=== PATIENT | female | born 1980 | race Caucasian/White ===

== ENCOUNTER 2019-01-13 12:33 | Emergency (ER) | payer OTHER ==
[~2019-01-13] VITALS: Ht 162.6 cm; Wt 104.3 kg
[2019-01-13 12:39] VITALS: BP 149/71
[2019-01-13] MEDS ORDERED: MEDROLDOSEPACK PO (13:13)
[2019-01-13] MEDS ORDERED: ROBAXIN 750 MG750 M1 PO (13:13)
== END 2019-01-13 13:57 | disposition home or self-care (01) ==
LOC: M.ERS 12:33
DX: G89.29 Other chronic pain (principal); M54.5 Low back pain; F32.9 Major depressive disorder, single episode, unspecified; F41.9 Anxiety disorder, unspecified